=== PATIENT | male | born 1975 | race Caucasian/White ===

== ENCOUNTER 2017-07-19 22:09 | Emergency (ER) | payer MEDICAID ==
[~2017-07-19] VITALS: Ht 172.7 cm; Wt 88.0 kg
[~2017-07-19 22:09] MED LIST: IBUP800T25 PO
[2017-07-19 22:13] VITALS: Ht 172.7 cm; Wt 88.0 kg
[2017-07-19 23:26] LABS: BASOPHILS % 0.6 % (0.0-2.0); EOSINOPHILS # 0.1 10^3/ul (0.0-0.5); EOSINOPHILS % 1.3 % (0.0-7.0); HEMATOCRIT 42.9 % (42.0-52.0); HEMOGLOBIN 13.8 g/dl (14.0-18.0); LYMPHOCYTES # 3.3 10^3/ul (0.8-2.9); LYMPHOCYTES % 48.6 % (15.0-51.0); MEAN CORPUSCULAR HEMOGLOBIN 28.9 pg (29.0-33.0); MEAN CORPUSCULAR HGB CONC 32.2 g/dl (32.0-37.0); MEAN CORPUSCULAR VOLUME 89.9 fl (82.0-101.0); MEAN PLATELET VOLUME 10.2 fl (7.4-10.4); MONOCYTE # 0.6 10^3/ul (0.3-0.9); MONOCYTES % 9.4 % (0.0-11.0); NEUTROPHIL # 2.7 10^3/ul (1.6-7.5); PLATELET COUNT 265 10^3/UL (140-415); RED BLOOD COUNT 4.77 10^6/ul (4.70-6.10); RED CELL DISTRIBUTION WIDTH 13.5 % (11.5-14.5); WHITE BLOOD COUNT 6.7 10^3/ul (4.8-10.8)
[2017-07-19 23:42] LABS: ALBUMIN/GLOBULIN RATIO 1.11; BILIRUBIN,INDIRECT 0.1 mg/dl (0-1.1); BILIRUBIN,TOTAL 0.1 mg/dl (0.2-1.3); CALCIUM 9.3 mg/dl (8.4-10.2); CREATININE 1.22 mg/dl (0.61-1.24); POTASSIUM 3.6 mmol/L (3.5-5.1); TOTAL PROTEIN 7.6 g/dl (6.1-8.1)
--- NOTE | 2017-07-19 23:43 | RADRPT ---
PROCEDURE: CT abdomen and pelvis without intravenous contrast. CLINICAL INDICATION: Pain. TECHNIQUE: CT of the abdomen/pelvis was performed utilizing axial images with reconstructions in s agittal and coronal planes. The administered radiation dose is CTDI 11 mGy, DLP 710 mGy-cm. One or m ore of the following dose reduction techniques were used: automated exposure control, adjustment of the mA and/or kV according to patient size and/or use of iterative reconstruction technique. COMPARISON: No pertinent prior examinations were submitted for comparison. FINDINGS: Visualized Chest: There is mild cardiomegaly. Abdomen: The liver, spleen, pancreas, gallbladder,and adrenal glands are unremarkable. The kidneys are without hydronephrosis. No definite urinary calculi are seen. There is no evidence of bowel obstruction. The appendix is normal. No intra-abdominal free air is seen. Several diverticula are noted along the sigmoid colon without evidence of diverticulitis. There is no evidence of intra-abdominal adenopathy or free fluid. Pelvis: There is no evidence of pelvic adenopathy or free fluid. The prostate and bladder are unremarkable. Osseous structures: Unremarkable. IMPRESSION: No acute findings. Sigmoid colonic diverticulosis. RPTAT: HIKT .Jean Montgomery MD, MD Date Time Electronically viewed and signed by .Jean Montgomery MD, on 07/19/2017 23:43 .T/
--- NOTE | 2017-07-19 23:52 | RADRPT ---
PROCEDURE: Testicle ultrasound with power Doppler. CLINICAL INDICATION: Scrotal pain. TECHNIQUE: Multiple sonographic images of the scrotal region were obtained utilizing a linear arra y transducer with grayscale and color-flow and a Doppler imaging. The images were reviewed on a high -resolution PACS workstation. COMPARISON: None. FINDINGS: Bilateral testicles are normal in size, contour, echogenicity and echotexture. The right testicle m easures 4.1 x 2.4 x 3.5 cm and the left testicle measures 4.3 x 2.4 x 3.3 cm. Testicle arterial and venous flow are normal. There is no evidence of testicular mass or torsion. There is no evidence of orchitis. Bilateral epididymi are normal in size, contour, position and echogenicity. The right epididymis me asures 10.8 x 11.5 x 7.2 mm the left epididymis measures 6.5 x 9.0 x 6.5 mm. There is no evidence of epididymitis. There are bilateral trace hydroceles, right greater than left. There is a right-side d epididymal cysts measuring 3.1 x 1.8 x 3.0 mm. There is no varicocele. Scrotal soft tissues are u nremarkable. IMPRESSION: Bilateral trace hydroceles. Right epididymal cyst. Otherwise unremarkable testicular ultrasound. .Demond Ambrocio MD, MD Date Time Electronically viewed and signed by .Demond Ambrocio MD, MD on 07/19/2017 23:52 .T/
--- NOTE | 2017-07-20 00:26 | ERD ---
ER Documentation Chief Complaint Date/Time DATE: 07/20/17 TIME: 00:23 Chief Complaint LLQ PAIN WITH RADICULAR TESTICLE PAIN, DENIES ENLARGEMENT OF TESTIE HPI This is a 41-year-old male presents to the ER with left lower quadrant abdominal pain that radiates into his left testicle for the last 3 months. Patient states that he [facility] to [facility] however they have not done any testing on him. Patient states that pain is constant and throbbing in quality. He tried ibuprofen for the pain however it does not work. He denies any nausea vomiting or diarrhea. Patient denies any fevers or chills. He denies any urinary frequency or dysuria. Patient denies any anal pain. He denies any nocturia. ROS 12 point review of systems was done, all negative except per HPI. Medications Home Meds Active Scripts Tramadol HCl (Tramadol HCl) 50 Mg Tablet, 50 MG PO Q4 Y for PAIN, #20 TAB Prov:JESSICA GEORGE C 07/20/17 Ibuprofen* (Motrin*) 600 Mg Tab, 600 MG PO Q6, #30 TAB Prov:JESSICA GEORGE C 07/20/17 Ibuprofen* (Motrin*) 800 Mg Tab, 800 MG PO Q6H Y for PAIN AND OR ELEVATED TEMP, #30 TAB Prov:[employer] 01/30/16 Allergies Allergies: Coded Allergies: No Known Allergy (Unverified , 01/30/16) PMhx/Soc History of Surgery: No Anesthesia Reaction: No Hx Neurological Disorder: No Hx Respiratory Disorders: No Hx Cardiac Disorders: No Hx Psychiatric Problems: No Hx Miscellaneous Medical Probl: Yes (hypothyroid) Hx Alcohol Use: No Hx Substance Use: No Hx Tobacco Use: No Smoking Status: Never smoker Physical Exam Vitals Vital Signs Date Time Temp Pulse Resp B/P Pulse Ox O2 Delivery O2 Flow Rate FiO2 07/19/17 22:13 97.3 68 18 142/88 99 Physical Exam GENERAL: The patient is well developed and appropriate for usual state of health , in no apparent distress. HEENT: Atraumatic. CHEST: Clear to auscultation bilaterally. There are no rales, wheezes or rhonchi. HEART: Regular rate and rhythm. No murmurs, clicks, rubs or gallops. ABDOMEN: Soft, nontender and nondistended. Good bowel sounds. No rebound or guarding. No gross peritonitis. No gross organomegaly or masses. No Kellogg sign or McBurney point tenderness. BACK: No midline or flank tenderness. : there is no testicular tenderness to palpation , no redness or swelling. no penile discharge. no hernia's are felt. NEURO: Alert and oriented. Result Diagram: 07/19/175 07/19/175 Results 24 hrs Laboratory Tests Test 07/19/17 22:45 07/20/17 00:51 White Blood Count 6.710^3/ul Red Blood Count 4.7710^6/ul Hemoglobin 13.8g/dl Hematocrit 42.9% Mean Corpuscular Volume 89.9fl Mean Corpuscular Hemoglobin 28.9pg Mean Corpuscular Hemoglobin Concent 32.2g/dl Red Cell Distribution Width 13.5% Platelet Count 66746^3/UL Mean Platelet Volume 10.2fl Neutrophils % 40.0% Lymphocytes % 48.6% Monocytes % 9.4% Eosinophils % 1.3% Basophils % 0.6% Nucleated Red Blood Cells % 0.0/100WBC Neutrophils # 2.710^3/ul Lymphocytes # 3.310^3/ul Monocytes # 0.610^3/ul Eosinophils # 0.110^3/ul Basophils # 0.010^3/ul Nucleated Red Blood Cells # 0.010^3/ul Sodium Level 140mmol/L Potassium Level 3.6mmol/L Chloride Level 105mmol/L Carbon Dioxide Level 29mmol/L Anion Gap 10 Blood Urea Nitrogen 16mg/dl Creatinine 1.22mg/dl Glucose Level 93mg/dl Calcium Level 9.3mg/dl Total Bilirubin 0.1mg/dl Direct Bilirubin 0.00mg/dl Indirect Bilirubin 0.1mg/dl Aspartate Amino Transf (AST/SGOT) 29IU/L Alanine Aminotransferase (ALT/SGPT) 49IU/L Alkaline Phosphatase 86IU/L Total Protein 7.6g/dl Albumin 4.0g/dl Globulin 3.60g/dl Albumin/Globulin Ratio 1.11 Lipase 76U/L Bedside Urine pH (LAB) 5.5 Bedside Urine Protein (LAB) Negative Bedside Urine Glucose (UA) Negative Bedside Urine Ketones (LAB) Negative Bedside Urine Blood Trace-intact Bedside Urine Nitrite (LAB) Negative Bedside Urine Leukocyte Esterase (L Negative [facility] [address], [place], [place] [address] Radiology Main Line: [phone] DIAGNOSTIC IMAGING REPORT Patient: JASS AGUILAR : 1975 Age: 41 Sex: M MR #: [id number] DOS: 07/19/17 2247 Ordering MD: JESSICA GEORGE PA-C Location: [facility] Room/Bed: PROCEDURE: CT abdomen and pelvis without intravenous contrast. CLINICAL INDICATION: Pain. TECHNIQUE: CT of the abdomen/pelvis was performed utilizing axial images with reconstructions in sagittal and coronal planes. The administered radiation dose is CTDI 11 mGy, DLP 710 mGy-cm. One or more of the following dose reduction techniques were used: automated exposure control, adjustment of the mA and/or kV according to patient size and/or use of iterative reconstruction technique. COMPARISON: No pertinent prior examinations were submitted for comparison. FINDINGS: Visualized Chest: There is mild cardiomegaly. Abdomen: The liver, spleen, pancreas, gallbladder,and adrenal glands are unremarkable. The kidneys are without hydronephrosis. No definite urinary calculi are seen. There is no evidence of bowel obstruction. The appendix is normal. No intra- abdominal free air is seen. Several diverticula are noted along the sigmoid colon without evidence of diverticulitis. There is no evidence of intra-abdominal adenopathy or free fluid. Pelvis: There is no evidence of pelvic adenopathy or free fluid. The prostate and bladder are unremarkable. Osseous structures: Unremarkable. IMPRESSION: No acute findings. Sigmoid colonic diverticulosis. RPTAT: HIKT .Jean Montgomery MD, MD Date Time Electronically viewed and signed by .Jean Montgomery MD, MD on 07/19/2017 23:43 .T/ CC: JESSICA GEORGE [place] [id number] Radiology Main Line: [phone] DIAGNOSTIC IMAGING REPORT Patient: JASS AGUILAR : 1975 Age: 41 Sex: M MR #: [id number] DOS: 07/19/17 2247 Ordering MD: JESSICA GEORGE PA-C Location: [facility] Room/Bed: PROCEDURE: Testicle ultrasound with power Doppler. CLINICAL INDICATION: Scrotal pain. TECHNIQUE: Multiple sonographic images of the scrotal region were obtained utilizing a linear array transducer with grayscale and color-flow and a Doppler imaging. The images were reviewed on a high-resolution PACS workstation. COMPARISON: None. FINDINGS: Bilateral testicles are normal in size, contour, echogenicity and echotexture. The right testicle measures 4.1 x 2.4 x 3.5 cm and the left testicle measures 4.3 x 2.4 x 3.3 cm. Testicle arterial and venous flow are normal. There is no evidence of testicular mass or torsion. There is no evidence of orchitis. Bilateral epididymi are normal in size, contour, position and echogenicity. The right epididymis measures 10.8 x 11.5 x 7.2 mm the left epididymis measures 6.5 x 9.0 x 6.5 mm. There is no evidence of epididymitis. There are bilateral trace hydroceles, right greater than left. There is a right-sided epididymal cysts measuring 3.1 x 1.8 x 3.0 mm. There is no varicocele. Scrotal soft tissues are unremarkable. IMPRESSION: Bilateral trace hydroceles. Right epididymal cyst. Otherwise unremarkable testicular ultrasound. .Demond Ambrocio MD, MD Date Time Electronically viewed and signed by .Demond Ambrocio MD, MD on 07/19/2017 23:52 .T/ CC: JESSICA GEORGE Procedures/MDM Differential diagnosis includes but is not limited to appendicitis, hernia, testicular torsion, UTI, constipation, epididymitis. Patient's abdominal examination is benign, patient has had this pain over the last 3 months suspicion for acute abdomen is low. Patient was found to have low cysts on CT scan, however no evidence of diverticulitis intra-abdominal abscess or perforation. There is no evidence of hernia on physical examination no evidence of testicular torsion on ultrasound. Patient will be sent home with ibuprofen and Tramadol for pain control, he was advised to follow-up with the GI specialist if he has had abdominal pain for this long. Patient is afebrile and extremely well-appearing. He is to follow-up with his primary care doctor within 1-2 days or return to ER sooner if symptoms worsen. My medical decision making shared with the patient he understands and agrees with plan. Departure Diagnosis: Primary Impression: Abdominal pain Additional Impression: Pain in testicle Condition: Stable JESSICA GEORGE Jul 20, 2017 00:26
[2017-07-20 00:45] LABS: URINE BLOOD (Dip) POC Trace-intact (NEGATIVE)
[2017-07-20] MEDS ORDERED: IBUP-1542 PO (00:52)
[2017-07-20] MEDS ORDERED: TRAM50TA2 PO (00:53)
[2017-07-20 01:08] VITALS: BP 131/71; PULSE 71; RESP 18
[2017-07-20 01:26] LABS: ADD UMIC NO; UR ASCORBIC ACID NEGATIVE (NEGATIVE); UR BILIRUBIN (Dip) NEGATIVE (NEGATIVE); UR BLOOD (Dip) NEGATIVE (NEGATIVE); UR CLARITY CLEAR (CLEAR); UR COLOR STRAW (YELLOW); UR GLUCOSE (Dip) NEGATIVE (NEGATIVE); UR KETONES (Dip) NEGATIVE (NEGATIVE); UR LEUKOCYTE ESTERASE (Dip) NEGATIVE Leu/ul (NEGATIVE); UR NITRITE (Dip) NEGATIVE (NEGATIVE); UR SPECIFIC GRAVITY (Dip) 1.013 (1.003-1.030); UR TOTAL PROTEIN (Dip) NEGATIVE (NEGATIVE); UR UROBILINOGEN (Dip) NEGATIVE (NEGATIVE)
== END 2017-07-20 01:09 | disposition home or self-care (01) ==
LOC: FTE 22:09
DX: R10.32 Left lower quadrant pain (principal); N50.812 Left testicular pain; E03.9 Hypothyroidism, unspecified
CPT/HCPCS: 36415; 74176; 76870; 80053; 81003; 83690; 85025; Z7502